=== PATIENT | female | born 1965 | race Caucasian/White ===

== ENCOUNTER → 2017-01-22 | Outpatient (CLI) | payer OTHER ==
--- NOTE | 2017-01-22 16:45 | XR ---
EXAMINATION TYPE: XR ankle complete LT , 3 VIEWS DATE OF EXAM ORDERED: 01/22/2017 HISTORY: [id number] lt ankle pain. COMPARISON: None. FINDINGS: There is a mildly displaced fracture of the distal metaphysis of the left fibula. No defin ite joint effusion is seen. No other fractures are identified. IMPRESSION: MILDLY DISPLACED FRACTURE OF THE DISTAL LEFT FIBULAR METAPHYSIS.
== END ==
LOC: RADXRYALE 14:45
PROVIDERS: ATTEND Family Medicine
DX: S82.832A Other fracture of upper and lower end of left fibula, initial encounter for closed fracture (principal)

== ENCOUNTER → 2017-02-03 | Outpatient (CLI) | payer OTHER ==
--- NOTE | 2017-02-03 21:11 | MR ---
EXAMINATION TYPE: Lumbar spine and cervical spine MRI DATE OF EXAM: 02/03/2017 COMPARISON: Spine 01/08/2015 HISTORY: Chronic pain, Headaches, Dorsalgia TECHNIQUE: Multiplanar, multisequence imaging of the lumbar and cervical spine is performed without I V contrast. FINDINGS: Lumbar spine MRI: Sagittal images of the lumbar spine show vertebral body heights and alignment to ap pear satisfactory. The intervertebral discs demonstrate normal heights and hydration with the excepti on of some loss of disc height and signal at L4-5, some increased signal at the posterior aspect of t he disc may represent a small annular tear. There is mild multilevel spondylosis. The conus medullari s is normal in position and signal. The bone marrow signal intensity is within normal limits. Axial images show small posterior disc bulge L5-S1 and L4-5. There is no spinal canal stenosis, neura l foraminal narrowing, or evidence of nerve root compromise. IMPRESSION: Small annular tear, central posterior disc bulge at L4-5 and to lesser extent L5-S1. Cervical spine MRI: Cervical vertebral bodies show preserved height and alignment. Loss of disc heigh t and signal present at C3-4 and C4-5, minimal endplate discogenic marrow signal change, spondylosis is present. Cervical cord signal, cervical medullary junction are normal. C2-3: Small central posterior disc bulge is noted, no significant foraminal encroachment or central c anal stenosis. C3-4: Status post extension of endplate disc complex results in mild effacement of the anterior theca l sac. Mild foraminal encroachment due to lateral extension of endplate disc complex. There may be co ntact the anterior cervical cord. C4-5: Posterior extension of endplate disc complex causes only minimal anterior mass effect on the th ecal sac. C5-6: Lateral extension of endplate disc complex causes some foraminal encroachment right sided. No s ignificant central stenosis. There is a broad-based posterior disc bulge. C6-7: Within normal limits C7-T1: Unremarkable IMPRESSION: Multilevel degenerative disc disease, foraminal encroachment as described.
== END | disposition home or self-care (01) ==
LOC: RADMRIMAIN 19:46
PROVIDERS: ATTEND Family Medicine
DX: M51.27 Other intervertebral disc displacement, lumbosacral region (principal); M50.30 Other cervical disc degeneration, unspecified cervical region
CPT/HCPCS: 72141; 72148

== ENCOUNTER → 2017-07-08 | Outpatient (CLI) | payer OTHER ==
--- NOTE | 2017-07-08 17:14 | CT ---
EXAMINATION TYPE: CT ankle LT wo con DATE OF EXAM: 07/08/2017 COMPARISON: Radiograph 01/22/2017 HISTORY: 52-year-old female with left ankle pain TECHNIQUE: Contiguous axial scanning of the left ankle without IV contrast. Coronal and sagittal roxie nstructions performed. CT DLP: 210.70 mGycm Automated exposure control for dose reduction was used. FINDINGS: There is a minimally comminuted, mildly displaced oblique fracture of the distal fibula at and just a cele the level of the ankle joint line. Healing is incomplete and some of the fracture margins appear somewhat sclerotic.. Small type I accessory navicular. Ankle mortise otherwise appears congruent. Talar dome is intact. Vyas btalar joint is aligned. Small delineation to the Achilles tendon. No additional acute fracture, subl uxation, or dislocation is seen. IMPRESSION: 1. Minimally comminuted, mildly displaced oblique fracture of the distal fibula. Healing is incomplet e and some of the fracture margins appear sclerotic. Delayed union is not excluded. 2. No other acute or healing fracture seen.
== END | disposition home or self-care (01) ==
LOC: RADCTMAIN 12:50
PROVIDERS: ATTEND Orthopaedic Surgery
DX: S82.62XG Displaced fracture of lateral malleolus of left fibula, subsequent encounter for closed fracture with delayed healing (principal)

== ENCOUNTER → 2017-08-18 | Outpatient (CLI) | payer OTHER ==
[2017-08-18 12:50] LABS: ALT 30 U/L (9-52); AST 28 U/L (14-36); Albumin 4.7 g/dL (3.5-5.0); Alkaline Phosphatase 104 U/L (38-126); Anion Gap 15 mmol/L; Blood Urea Nitrogen 11 mg/dL (7-17); Calcium 10.2 mg/dL (8.4-10.2); Carbon Dioxide 21 mmol/L (22-30); Chloride 106 mmol/L (98-107); Glucose 93 mg/dL (74-99); Sodium 142 mmol/L (137-145); Total Bilirubin 0.4 mg/dL (0.2-1.3)
[2017-08-18 12:59] LABS: Prothrombin Time 10.2 sec (9.0-12.0)
[2017-08-18 13:08] LABS: Basophils % (A) 1 %; Eosinophils # (A) 0.3 k/uL (0-0.7); Eosinophils % (A) 5 %; HCT 41.6 % (34.0-46.0); HGB 13.8 gm/dL (11.4-16.0); Lymphocytes # (A) 1.9 k/uL (1.0-4.8); Lymphocytes % (A) 28 %; MCH 29.6 pg (25.0-35.0); MCHC 33.1 g/dL (31.0-37.0); MCV 89.4 fL (80.0-100.0); Mean Platelet Volume 6.9; Monocytes # (A) 0.4 k/uL (0-1.0); Monocytes % (A) 6 %; Neutrophils # (A) 3.9 k/uL (1.3-7.7); Neutrophils % (A) 59 %; Platelet Count 366 k/uL (150-450); RBC 4.66 m/uL (3.80-5.40); RDW 12.7 % (11.5-15.5); WBC 6.6 k/uL (3.8-10.6)
== END | disposition home or self-care (01) ==
LOC: LABPAT 12:12
PROVIDERS: ATTEND Family Medicine
DX: Z01.818 Encounter for other preprocedural examination (principal); E78.00 Pure hypercholesterolemia, unspecified
CPT/HCPCS: 36415; 80053; 85025; 85610; 93005

== ENCOUNTER 2017-08-28 11:46 | Day surgery (SDC) | payer OTHER ==
[2017-08-26 12:34] VITALS: BMI 20.5
[~2017-08-28 11:46] MED LIST: DEXAMETHASONE SOD PHOSPHATE 10 MG/ML 1 ML VIAL IV ONE; HYDROmorphone 0.5 MG/0.5 ML SYRINGE IVP PRN; LACTATED RINGERS 1,000 ML IV SCH; LIDOCAINE 1% 20 ML VIAL (10MG/ML) FOR IV START INTRADERMA PRN; MIDAZOLAM 2 MG/2 ML VIAL IV PRN; MORPHINE SULFATE 2 MG/ML SYRINGE IV PRN; ONDANSETRON 4 MG/2 ML VIAL IVP ONE; SCOPOLAMINE 1.5MG/72HR PATCH TRANSDERM ONE; ceFAZolin IN SWFI 2 GM/20 ML SYRINGE IVP ONE
[2017-08-28] MEDS ORDERED: fentaNYL (PF) 50 MCG/ML 2 ML AMP IV ONE ×2 (13:58)
[2017-08-28] MEDS ORDERED: PROPOFOL 10 MG/ML 20 ML VIAL IV ONE (15:22)
[2017-08-28] MEDS ORDERED: LIDOCAINE 1% INJ 10MG/ML (20 ML MDV) ONE (15:22)
[2017-08-28] MEDS ORDERED: fentaNYL (PF) 50 MCG/ML 2 ML AMP ONE (15:22)
[2017-08-28] MEDS ORDERED: SUCCINYLCHOLINE CHLORIDE 100 MG/5 ML SYR IV ONE (15:22)
[2017-08-28] MEDS ORDERED: diphenhydrAMINE 25 MG CAP PO PRN (16:41)
[2017-08-28] MEDS ORDERED: MORPHINE SULFATE 4MG/4ML SYRG IVP PRN ×2 (16:41)
[2017-08-28] MEDS ORDERED: HYDROcodone/APAP 5-325MG 1 EACH TAB PO PRN ×2 (16:41)
[2017-08-28] MEDS ORDERED: LACTATED RINGERS 1,000 ML IV ONE (16:52)
[2017-08-28 17:00] VITALS: TEMP 97.6
[2017-08-28] MEDS: MEPERIDINE 50 MG/ML SYRINGE IVP ONE ×2 (17:00→17:10)
--- NOTE | 2017-08-28 17:03 | P.OP ---
Date of Procedure: 08/28/17 Preoperative Diagnosis: 1. Left lateral malleolus nonunion 2. History of cigarette smoking Postoperative Diagnosis: Same Procedure(s) Performed: 1. Open reduction and internal fixation of left lateral malleolus nonunion 2. Left calcaneal bone graft harvest, deep 3. Application of short leg splint by physician Anesthesia: MINOO Surgeon: César Nair Sumac Tanner #1: Giancarlo Singleton Estimated Blood Loss (ml): 10 IV fluids (ml): 500 Pathology: none sent Condition: stable Disposition: PACU Indications for Procedure: The patient is a very pleasant 52-year-old female who sustained an isolated lateral malleolus fracture. The fracture was found to be nondisplaced and she was treated conservatively with a period of protected weightbearing in a boot. Unfortunately the patient went on to develop a nonunion. The patient has a medical history significant for cigarette smoking. The patient was able to quit smoking. She had her vitamin D checked and she had supplements ordered. She also started on a bone stimulator. She continued to have pain so a computed tomography scan was obtained that showed a nonunion. We discussed continued nonsurgical treatment versus surgery. Due to her ongoing pain the patient requested surgery. My recommendation was to perform an open reduction internal fixation and bone grafting. We discussed the potential risks and benefits of surgery including not limited to risk of anesthesia, risk of delayed wound healing, risk of superficial infection, risk of deep infection, risk of damage to local blood vessels or nerves, risk of fracture nonunion, risk of fracture malunion, risk of hardware failure, risk of posterior medical arthritis, risk of chronic pain, risk of chronic swelling, inability to regain preinjury level of function, DVT, PE, other medical complications, need for further surgery, and possibly loss of life or limb. The patient voiced her understanding of this. She also knowledge that she is at a much higher risk of having a complication due to her prior history of smoking. She provided her verbal and written consent to go forward with the above procedure. Description of Procedure: The patient was identified in Holding and the correct left leg was marked with my initials. I reviewed the consent form with the patient and her family. All their questions were answered. The patient was then brought back to the operating room by anesthesia. A general anesthetic and preoperative antibiotics were administered. The patient was positioned on the OR table. A tourniquet was applied to the proximal aspect of the left thigh. A ramp was placed under the left buttock. All bony prominences were well-padded. The left leg was then prepped and draped in standard sterile fashion. Prior to starting surgery timeout was performed identifying the correct patient, operative extremity, and procedure. The patient's leg was then elevated, exsanguinated with an Esmarch bandage, and the tourniquet was inflated to 250 mmHg. An incision was marked out directly over the lateral aspect of the distal fibula. Skin incision was made a 15 blade scalpel. Dissection was carried down carefully through subcutaneous tissue with tenotomy scissors. The distal fibula was exposed. The fracture site was identified. There is a fibrous nonunion. Using a series of osteotomes and curettes the fracture site was debrided down to healthy bone. Once the fracture site had been exposed calcaneal bone graft was harvested. A small stab incision was made over the posterior inferior aspect of the posterior tuberosity. Skin incision was made at the site 15 blade. Dissection was carried down carefully with a hemostat. Using a 4.5 mm drill guide a core of bone was taken. This bone was then placed at the nonunion site. The fracture site was then clamped with a [id number] reduction clamp. The distal fragment was very soft. Once the fibular fracture was anatomically reduced fluoroscopy was used to verify that the fibula was out to length. Due to the patient's very thin soft tissue envelope over the lateral malleolus and her history of smoking I elected to place her hardware in a posterior anti-glide position. A 6-hole one third tubular plate was contoured and placed along the posterior border of the fibula. A 3.5 mm screws placed in the third hole of the plate just proximal to the fracture. A second 3.5 mm screw was placed in the first hole of the plate. The plate was nicely brought down to bone by the screws. I then placed a 3.5 mm locking screw in the most distal hole of the plate. A 2.7 mm lag screw was placed in the fifth hole of the plate. A 2.7 mm drill bit was used to create a gliding hole in the posterior cortex of the distal fragment and a 2.0 mm drill bit was used to create a threaded hole in the anterior cortex the proximal fragment. A fully threaded 2.7 mm screw was placed generating excellent compression across the fracture site. Final fluoroscopic images were taken. The wound was copiously irrigated. The periosteal layer was closed with a running 2-0 Vicryl. The deep subcu was reapproximated using 3-0 Monocryl. The skin was closed with 3-0 nylon horizontal mattress stitches. The stab incision over the calcaneus was closed with a 3-0 nylon horizontal mattress stitch. I verified that all instrument, sponge, and sharp counts were correct. The tourniquet was let down with a total tourniquet time of 48 minutes. A sterile dressing consisting of Betadine soaked Adaptic, 4 x 4, and web roll was applied. The drapes were taken off in a well-padded bulky Escobar splint was placed with the ankle in neutral. The patient was then awoken from her anesthetic, transferred to a gurney, and brought to PACU without the procedure well. Giancarlo Singleton PA-C was required a skilled digital assistant for patient positioning, exposure, reduction of fracture, harvested bone graft, placement of hardware, closure of wound, and application of splint. Plan: The patient is going to discharge home as an outpatient. She is to remain strictly nonweightbearing on her operative leg. She is to keep her splint clean and dry. She is going to continue taking calcium and vitamin D supplementation. She'll take aspirin 325 mg twice a day for DVT prophylaxis. She'll follow-up in 2 weeks for splint removal, x-rays, and placement of a cast.
--- NOTE | 2017-08-28 17:06 | FL ---
EXAMINATION TYPE: FL guidance operating room, XR ankle limited LT DATE OF EXAM: 08/28/2017 COMPARISON: NONE HISTORY: 52 year-old female left ankle ORIF FINDINGS: 2 intraoperative views showing lateral plate and screw fixation of the distal fibula. FLUOROSCOPY Fluoroscopy time of 17 seconds was used during left ankle ORIF. 2 image/s document/s the procedure. IMPRESSION: Intraoperative fluoroscopy during lateral malleolar ankle fixation.
[2017-08-28 17:40] VITALS: RESP 18
[2017-08-28 18:16] VITALS: BP 127/66; PULSE 80
== END 2017-08-28 18:35 | disposition home or self-care (01) ==
LOC: OR 11:46
PROVIDERS: ATTEND Orthopaedic Surgery
DX: S82.62XK Displaced fracture of lateral malleolus of left fibula, subsequent encounter for closed fracture with nonunion (principal); W18.30XD Fall on same level, unspecified, subsequent encounter; E78.5 Hyperlipidemia, unspecified; E03.9 Hypothyroidism, unspecified; I10 Essential (primary) hypertension; F98.8 Other specified behavioral and emotional disorders with onset usually occurring in childhood and adolescence; M81.0 Age-related osteoporosis without current pathological fracture; Z96.89 Presence of other specified functional implants; J44.9 Chronic obstructive pulmonary disease, unspecified; Z87.891 Personal history of nicotine dependence; Z79.891 Long term (current) use of opiate analgesic; Z79.51 Long term (current) use of inhaled steroids; Z79.1 Long term (current) use of non-steroidal anti-inflammatories (NSAID); Z79.899 Other long term (current) drug therapy; Z88.6 Allergy status to analgesic agent; Z88.0 Allergy status to penicillin
CPT/HCPCS: 73600; 27726; 20900; C1713; J2250; J1100; J2175; J2405; J2001; J3010; J0330; J2704; J0690

== ENCOUNTER 2024-08-30 20:14 | Inpatient (IN) | payer OTHER ==
[2024-08-30 21:05] LABS: Basophils # (A) 0.08 10*3/uL (0.00-0.10); Basophils % (A) 0.5 %; Eosinophils # (A) 0.02 10*3/uL (0.04-0.35); Eosinophils % (A) 0.1 %; HCT 36.7 % (37.2-46.3); HGB 12.3 g/dL (12.0-15.0); Lymphocytes # (A) 0.62 10*3/uL (0.90-5.00); Lymphocytes % (A) 3.6 %; MCHC 33.5 g/dL (32.0-37.0); MCV 86.6 fL (80.0-97.0); Mean Platelet Volume 9.4 fL (9.5-12.2); Monocytes # (A) 1.73 10*3/uL (0.20-1.00); Monocytes % (A) 9.9 %; Neutrophils # (A) 14.85 10*3/uL (1.80-7.70); Neutrophils % (A) 85.2 %; Platelet Count 365 10*3/uL (140-440); RBC 4.24 10*6/uL (4.10-5.20); WBC 17.43 10*3/uL (4.50-10.00)
[2024-08-30] MEDS: IBUPROFEN 600 MG TAB PO STA (21:05)
[2024-08-30] MEDS: ACETAMINOPHEN TAB 325 MG TAB PO STA (21:05)
[2024-08-30] MEDS: HYDROmorphone 0.5 MG/0.5 ML SYRINGE IVP STA (21:07)
--- NOTE | 2024-08-30 21:11 | ED ---
General Adult HPI - General Chief complaint: Shortness of Breath Stated complaint: Fall-SOB Time Seen by Provider: 08/30/24 20:34 Source: patient, RN notes reviewed Mode of arrival: ambulatory Limitations: no limitations - History of Present Illness Initial comments: 59-year-old female presents emergency department chief complaint of shortness of breath. Patient states she does have COPD she is she also had a fall and fell onto her ribs. She complains of severe rib pain. Patient denies any abdominal pain denies any head injury no loss conscious. Patient states her cough is productive with yellow sputum. Denies any sick contacts. - Related Data Home Medications Medication Instructions Recorded Confirmed Albuterol Inhaler [Ventolin Hfa 2 puff INHALATION RT-Q6H PRN 12/17/15 08/28/17 Inhaler] Atorvastatin [Lipitor] 20 mg PO DAILY 12/17/15 08/28/17 Beclomethasone Dipropionate [Qvar 1 puff INHALATION RT-BID 12/17/15 08/28/17 80 mcg/puff] Dextroamphetamine/Amphetamine 30 mg PO BID 12/17/15 08/28/17 [Adderall] Diazepam 10 mg PO BID PRN 12/17/15 08/28/17 Ibuprofen [Motrin] 800 mg PO Q8H PRN 12/17/15 08/28/17 Levothyroxine Sodium [Synthroid] 100 mcg PO QAM 12/17/15 08/28/17 Zolpidem Tartrate [Ambien] 10 mg PO HS PRN 08/26/17 08/28/17 Previous Rx's Medication Instructions Recorded HYDROcodone/APAP 5-325MG [[place] 5] 1 each PO Q4HR PRN #20 tab 12/17/15 Aspirin 325 mg PO BID #28 tab 08/28/17 Calcium Carbonate 500 mg PO TID #90 tablet 08/28/17 Cholecalciferol (Vitamin D3) 2,000 unit PO DAILY #60 capsule 08/28/17 [Vitamin D3] HYDROcodone/APAP 10-325MG [[place] 1 tab PO Q4HR PRN #50 tab 08/28/17 10-325] Allergies Allergy/AdvReac Type Severity Reaction Status Date / Time Penicillins Allergy Unknown Verified 08/26/17 12:20 Childhood Review of Systems ROS Statement: Those systems with pertinent positive or pertinent negative responses have been documented in the HPI. ROS Other: All systems not noted in ROS Statement are negative. Past Medical History Past Medical History: COPD, Hyperlipidemia, Thyroid Disorder Additional Past Medical History / Comment(s): fx lt ankle due to fall. History of Any Multi-Drug Resistant Organisms: None Reported Additional Past Surgical History / Comment(s): d & c Past Anesthesia/Blood Transfusion Reactions: No Reported Reaction Additional Past Anesthesia/Blood Transfusion Reaction / Comment(s): no hx blood transfusion Past Psychological History: Anxiety Smoking Status: Current every day smoker Past Alcohol Use History: Rare Past Drug Use History: None Reported - Past Family History Mother Family Medical History: No Reported History Father Family Medical History: Deep Vein Thrombosis (DVT) Additional Family Medical History / Comment(s): paralysis after hernia operation General Exam Limitations: no limitations General appearance: alert, in no apparent distress Head exam: Present: atraumatic, normocephalic, normal inspection Eye exam: Present: normal appearance, PERRL, EOMI. Absent: scleral icterus, conjunctival injection, periorbital swelling ENT exam: Present: normal exam, normal oropharynx, mucous membranes moist, TM's normal bilaterally Neck exam: Present: normal inspection. Absent: tenderness, meningismus, lymphadenopathy Respiratory exam: Present: respiratory distress, wheezes, rhonchi, chest wall tenderness. Absent: normal lung sounds bilaterally, rales, stridor Cardiovascular Exam: Present: normal rhythm, tachycardia, normal heart sounds. Absent: systolic murmur, diastolic murmur, rubs, gallop, clicks GI/Abdominal exam: Present: soft, normal bowel sounds. Absent: distended, tenderness, guarding, rebound, rigid Course Vital Signs 08/30/24 08/30/24 08/30/24 20:30 21:09 21:28 Temperature 102.6 F H 100.6 F H Pulse Rate 141 H 137 H Respiratory 20 24 Rate Blood Pressure 101/44 102/72 O2 Sat by Pulse 72 L 94 L Oximetry 08/30/24 08/30/24 21:46 21:59 Temperature Pulse Rate 125 H 122 H Respiratory Rate Blood Pressure O2 Sat by Pulse Oximetry EKG Findings - EKG Comments: EKG Findings:: EKG performed at 20: 46 sinus tachycardia rate of 138 [place] 140 QRS 97 QT/QTc 297/377 - EKG Results: EKG: interpreted by [facility] Medical Decision Making - Medical Decision Making Was pt. sent in by a medical professional or institution (, PA, BORE MILL OPERATOR, urgent care, hospital, or shelter...) When possible be specific @ -No Did you speak to anyone other than the patient for history (EMS, parent, family, police, friend...)? What history was obtained from this source @ -No Did you review nursing and triage notes (agree or disagree)? Why? @ -I reviewed and agree with nursing and triage notes Were old charts reviewed (outside hosp., previous admission, EMS record, old EKG, old radiological studies, urgent care reports/EKG's, shelter records)? Report findings @ -No old charts were reviewed Differential Diagnosis (chest pain, altered mental status, abdominal pain women, abdominal pain men, vaginal bleeding, weakness, fever, dyspnea, syncope, headache, dizziness, GI bleed, back pain, seizure, CVA, palpatations, mental health, musculoskeletal)? @ -[Differential Dyspnea: Coronary syndrome, arrhythmia, tamponade, asthma, COPD, pulmonary embolism, pneumonia, pneumothorax, pulmonary effusion, anaphylaxis, diabetic ketoacidosis, flailed chest, pulmonary contusion, diaphragmatic rupture, anemia, neuromuscular, this is not meant to be an all-inclusive list. EKG interpreted by me (3pts min.). @ -As above X-rays interpreted by me (1pt min.). @ -Chest x-ray shows evidence of pneumonia no obvious fracture CT interpreted by me (1pt min.). @ -None done U/S interpreted by me (1pt. min.). @ -None done What testing was considered but not performed or refused? (CT, X-rays, U/S, labs)? Why? @ -None What meds were considered but not given or refused? Why? @ -None Did you discuss the management of the patient with other professionals (professionals i.e. , RYAN, BORE MILL OPERATOR, lab, RT, psych nurse, sr. social media & mobile manager, return clerk, teacher, child support officer, case management director)? Give summary @ - Precaution for admission Was smoking cessation discussed for >3mins.? @ -No Was critical care preformed (if so, how long)? @ -35 minutes Were there social determinants of health that impacted care today? How? (Homelessness, low income, unemployed, alcoholism, drug addiction, transportation, low edu. Level, literacy, decrease access to med. care, [place] [facility], rehab)? @ -No Was there de-escalation of care discussed even if they declined (Discuss DNR or withdrawal of care, Hospice)? DNR status @ -No What co-morbidities impacted this encounter? (DM, HTN, Smoking, COPD, CAD, Cancer, CVA, ARF, Chemo, Hep., AIDS, mental health diagnosis, sleep apnea, morbid obesity)? @ -COPD Was patient admitted / discharged? Hospital course, mention meds given and route, prescriptions, significant lab abnormalities, going to OR and other pertinent info. @ -Admitted patient presented in acute hypoxic respiratory failure patient was placed supplemental oxygen, breathing treatments. Patient will be admitted for IV antibiotics steroids breathing treatments for COPD exacerbation and pneumonia. Undiagnosed new problem with uncertain prognosis? @ -No Drug Therapy requiring intensive monitoring for toxicity (Heparin, Nitro, Insulin, Cardizem)? @ -No Were any procedures done? @ -No Diagnosis/symptom? @ -COPD exacerbation, pneumonia, acute hypoxic respiratory failure Acute, or Chronic, or Acute on Chronic? @ -Acute Uncomplicated (without systemic symptoms) or Complicated (systemic symptoms)? @ -Complicated Side effects of treatment? @ -No Exacerbation, Progression, or Severe Exacerbation? @ -No Poses a threat to life or bodily function? How? (Chest pain, [place], [place], pneumonia, PE, COPD, DKA, ARF, appy, cholecystitis, CVA, Diverticulitis, Homicidal, Suicidal, threat to staff... and all critical care pts) @ -Yes threat to pulmonary function - Lab Data Result diagrams: 08/30/24 20:51 08/30/24 20:51 Lab Results 08/30/24 08/30/24 08/30/24 Range/Units 20:51 20:51 20:51 WBC 17.43 H (4.50-10.00) 10*3/uL RBC 4.24 (4.10-5.20) 10*6/uL Hgb 12.3 (12.0-15.0) g/dL Hct 36.7 L (37.2-46.3) % MCV 86.6 (80.0-97.0) fL MCH 29.0 (27.0-32.0) pg MCHC 33.5 (32.0-37.0) g/dL Plt Count 365 (140-440) 10*3/uL MPV 9.4 L (9.5-12.2) fL Immature Gran % (Auto) 0.7 % Neutrophils % 85.2 % Lymphocytes % 3.6 % Monocytes % 9.9 % Eosinophils % 0.1 % Basophils % 0.5 % Immature Gran # 0.13 H (0.00-0.04) 10*3/uL Neutrophils # 14.85 H (1.80-7.70) 10*3/uL Lymphocytes # 0.62 L (0.90-5.00) 10*3/uL Monocytes # 1.73 H (0.20-1.00) 10*3/uL Eosinophils # 0.02 L (0.04-0.35) 10*3/uL Basophils # 0.08 (0.00-0.10) 10*3/uL Manual Slide Review Performed PT 11.3 (10.0-12.5) sec INR 1.0 (<1.2) APTT 24.2 (22.0-30.0) sec Sodium 134 L (137-145) mmol/L Potassium 3.3 L (3.5-5.1) mmol/L Chloride 99 (98-107) mmol/L Carbon Dioxide 23 (22-30) mmol/L Anion Gap 12 mmol/L BUN 18 H (7-17) mg/dL Creatinine 0.73 (0.52-1.04) mg/dL Est GFR (CKD-EPI)AfAm >90 (>60 ml/min/1.73 sqM) Est GFR (CKD-EPI)NonAf >90 (>60 ml/min/1.73 sqM) Glucose 126 H (74-99) mg/dL Plasma Lactic Acid Adis (0.7-2.0) mmol/L Calcium 9.3 (8.4-10.2) mg/dL Magnesium 1.8 (1.6-2.3) mg/dL Total Bilirubin 2.1 H (0.2-1.3) mg/dL AST 220 H (14-36) U/L ALT 153 H (4-34) U/L Alkaline Phosphatase 427 H (38-126) U/L Troponin I (0.000-0.034) ng/mL NT-Pro-B Natriuret Pep 520 pg/mL Total Protein 6.9 (6.3-8.2) g/dL Albumin 3.9 (3.5-5.0) g/dL Influenza Type A (PCR) (Not Detectd) Influenza Type B (PCR) (Not Detectd) RSV (PCR) (Not Detectd) SARS-CoV-2 (PCR) (Not Detectd) 08/30/24 08/30/24 08/30/24 Range/Units 20:51 20:51 20:51 WBC (4.50-10.00) 10*3/uL RBC (4.10-5.20) 10*6/uL Hgb (12.0-15.0) g/dL Hct (37.2-46.3) % MCV (80.0-97.0) fL MCH (27.0-32.0) pg MCHC (32.0-37.0) g/dL Plt Count (140-440) 10*3/uL MPV (9.5-12.2) fL Immature Gran % (Auto) % Neutrophils % % Lymphocytes % % Monocytes % % Eosinophils % % Basophils % % Immature Gran # (0.00-0.04) 10*3/uL Neutrophils # (1.80-7.70) 10*3/uL Lymphocytes # (0.90-5.00) 10*3/uL Monocytes # (0.20-1.00) 10*3/uL Eosinophils # (0.04-0.35) 10*3/uL Basophils # (0.00-0.10) 10*3/uL Manual Slide Review PT (10.0-12.5) sec INR (<1.2) APTT (22.0-30.0) sec Sodium (137-145) mmol/L Potassium (3.5-5.1) mmol/L Chloride (98-107) mmol/L Carbon Dioxide (22-30) mmol/L Anion Gap mmol/L BUN (7-17) mg/dL Creatinine (0.52-1.04) mg/dL Est GFR (CKD-EPI)AfAm (>60 ml/min/1.73 sqM) Est GFR (CKD-EPI)NonAf (>60 ml/min/1.73 sqM) Glucose (74-99) mg/dL Plasma Lactic Acid Adis 1.4 (0.7-2.0) mmol/L Calcium (8.4-10.2) mg/dL Magnesium (1.6-2.3) mg/dL Total Bilirubin (0.2-1.3) mg/dL AST (14-36) U/L ALT (4-34) U/L Alkaline Phosphatase (38-126) U/L Troponin I <0.012 (0.000-0.034) ng/mL NT-Pro-B Natriuret Pep pg/mL Total Protein (6.3-8.2) g/dL Albumin (3.5-5.0) g/dL Influenza Type A (PCR) Not Detected (Not Detectd) Influenza Type B (PCR) Not Detected (Not Detectd) RSV (PCR) Not Detected (Not Detectd) SARS-CoV-2 (PCR) Not Detected (Not Detectd) Disposition Clinical Impression: COPD exacerbation, Pneumonia, Acute hypoxic respiratory failure Disposition: ADMITTED IP TO THIS HOSP Condition: Poor Referrals: Cain Sung MD [Primary Care Provider] - 1-2 days Time of Disposition: 22:29
--- NOTE | 2024-08-30 21:13 | XR ---
EXAMINATION TYPE: XR chest 2V DATE OF EXAM: 08/30/2024 9:03 PM COMPARISON: None TECHNIQUE: XR chest 2V Frontal and lateral views of the chest. CLINICAL INDICATION:Female, 59 years old with history of difficulty breathing; FINDINGS: Lungs/Pleura: Hyperinflation. No pleural effusion. Right basilar patchy airspace opacities. Appears t o be primarily within the right middle lobe. No pneumothorax. Pulmonary vascularity: Unremarkable. Heart/mediastinum: Cardiomediastinal silhouette is unremarkable. Atherosclerotic calcifications are seen in the aorta. Musculoskeletal: No acute osseous pathology. IMPRESSION: Right basilar pneumonia superimposed upon background COPD. [facility], , 08/30/2024 9:11 PM
[2024-08-30 21:15] LABS: Partial Thromboplastin Time 24.2 sec (22.0-30.0); Prothrombin Time 11.3 sec (10.0-12.5)
[2024-08-30 21:18] LABS: ALT 153 U/L (4-34); AST 220 U/L (14-36); African American GFR (CKD) >90 (>60 ml/min/1.73 sqM); Albumin 3.9 g/dL (3.5-5.0); Alkaline Phosphatase 427 U/L (38-126); Anion Gap 12 mmol/L; Blood Urea Nitrogen 18 mg/dL (7-17); Calcium 9.3 mg/dL (8.4-10.2); Carbon Dioxide 23 mmol/L (22-30); Chloride 99 mmol/L (98-107); Glucose 126 mg/dL (74-99); Magnesium 1.8 mg/dL (1.6-2.3); Non-African American GFR(CKD) >90 (>60 ml/min/1.73 sqM); Potassium 3.3 mmol/L (3.5-5.1); Sodium 134 mmol/L (137-145); Total Bilirubin 2.1 mg/dL (0.2-1.3); Total Protein 6.9 g/dL (6.3-8.2)
[2024-08-30 21:26] LABS: NT-Pro-B-Type Natriuretic Pept 520 pg/mL
[2024-08-30 21:42] LABS: Influenza A Not Detected (Not Detectd); Influenza B Not Detected (Not Detectd); RSV Not Detected (Not Detectd)
[2024-08-30] MEDS: IPRATROPIUM-ALBUTEROL 3 ML NEB INHALATION STA (21:46)
[2024-08-30] MEDS ORDERED: IPRATROPIUM-ALBUTEROL 3 ML NEB INHALATION PRN (22:31)
[2024-08-30] MEDS ORDERED: NALOXONE 0.4 MG/ML 1 ML VIAL IVP PRN (22:31)
[2024-08-30] MEDS ORDERED: ACETAMINOPHEN TAB 325 MG TAB PO PRN (22:31)
[2024-08-30] MEDS: methylPREDNISolone SOD SUCCI 125 MG/2 ML VIAL IV STA (23:18)
[2024-08-30] MEDS: methylPREDNISolone SOD SUCCI 125 MG/2 ML VIAL IV SCH (23:21)
[2024-08-31] MEDS: HYDROcodone/APAP 5-325MG 1 EACH TAB PO PRN (00:09)
[2024-08-31] MEDS: SODIUM CHLORIDE 0.9% 1,000 ML IV ONE (00:09)
[2024-08-31] MEDS: IPRATROPIUM-ALBUTEROL 3 ML NEB INHALATION SCH (07:48)
[2024-08-31] MEDS: IBUPROFEN 800 MG TAB PO SCH (10:41)
[2024-08-31] MEDS: ATORVASTATIN 40 MG TAB PO SCH (10:41)
[2024-08-31] MEDS: MONTELUKAST 10 MG TAB PO SCH (10:41)
[2024-08-31] MEDS: LEVOTHYROXINE 112 MCG TAB PO SCH (10:41)
[2024-08-31] MEDS: GABAPENTIN 300 MG CAP PO SCH (10:41)
[2024-08-31] MEDS: ENOXAPARIN 40 MG/0.4 ML SYRINGE SQ SCH (10:43)
[2024-08-31] MEDS: ESCITALOPRAM 10 MG TAB PO SCH (10:52)
[2024-08-31] MEDS: methylPREDNISolone SOD SUCCI 40 MG/ML 1 ML VIAL IV SCH (12:46)
[2024-08-31] MEDS: cefTRIAXone 2 GM in DEXTROSE 5% IN WATER 50 ML IVPB SCH (12:47)
--- NOTE | 2024-08-31 15:18 | P.HPIM ---
History of Present Illness H&P Date: 08/31/24 Chief Complaint: Short of breath Pleasant 59-year-old, female patient, follows with Dr. Sung. Chronic stable medical condition include hypothyroid, osteoarthritis, hyperlipidemia, depression anxiety, urine incontinence. Patient presents with increased shortness of breath. Cough with yellow thick chunky sputum. Chills. Decreased appetite for 2 to 3 days. Wheezing. Patient smoking less than a pack a day. Fever and chills Review of systems: GEN.: Tired, chills, EYES: None HEENT: None NECK: None RESPIRATORY: [As above CARDIOVASCULAR: None GASTROINTESTINAL: None GENITOURINARY: None MUSCULOSKELETAL: None LYMPHATICS: None HEMATOLOGICAL: None PSYCHIATRY: None NEUROLOGICAL: None Social history: Lives with her boyfriend Enzo. Currently less than a pack a day with smoking for quite close to 48 years. No alcohol. Physical examination: VITAL SIGNS: 102.6, 141, 20, 101/44, 72% room air upon presentation GENERAL: BMI 21.5, thin built, sitting up tired. EYES: Pupils equal. Conjunctiva lars l. HEENT: [External appearance of nose and ears normal, oral cavity missing teeth NECK: JVD not raised; masses not palpable. HEART: First and second heart sounds are normal; no edema. LUNGS: Respiratory rate increased, diminished breath sounds wheezing basal crackles. ABDOMEN: Soft, nontender, liver spleen not palpable, no masses palpable. PSYCH: [Alert and oriented x3; mood and affect bit anxious. MUSCULOSKELETAL:No Clubbing/cyanosis;muscles-grossly intact. Loss of muscle mass subcutaneous fat. Prominent bones. NEUROLOGICAL: Cranial nerves grossly intact; no facial asymmetry, power and sensation grossly intact. LYMPHATICS: No lymph nodes palpable in the axilla and neck INVESTIGATIONS, reviewed in the clinical context: August 30, 2024: White count 7.4 hemoglobin 12.3 platelets 365 sodium 134 potassium 3.3.18 creatinine 0.73 total bilirubin 2.1 AST 220 ALT 153 alkaline phosphatase 437 Troponin less than 0.012 proBNP 520 Influenza type A, type B, RSV, SARS-CoV-2: Not detected EKG tracing personally reviewed by me-sinus tachycardia. ST-T wave changes. Chest x-ray film personally reviewed by me-right basilar infiltrate. Assessment plan: - Right basal pneumonia suspect gram-negative organism causing sepsis IV ceftriaxone 2 g. Sputum for Gram stain culture. Blood culture - Acute COPD exacerbation in a current smoker DuoNeb. IV Solu-Medrol. - Chronic nicotine dependence cigarette smoker Nicotine patch 21 - Hepatitis. Unknown acute versus chronic. Acute hepatitis panel. Liver ultrasound Hold Lipitor - Hypothyroid Synthroid 112 mcg a day. Check LFTs - Chronic depression with anxiety. Lexapro. Diazepam. - Osteoporosis, chronic Fosamax - Hyperlipidemia Lipitor - Edentulous Soft diet - Full code Discussed with patient. Given the complexity and severity of patient's condition expect the patient to be in the hospital at least for 2 overnights Past Medical History Past Medical History: COPD, Hyperlipidemia, Thyroid Disorder Additional Past Medical History / Comment(s): fx lt ankle due to fall. History of Any Multi-Drug Resistant Organisms: None Reported Additional Past Surgical History / Comment(s): d & c. Past Anesthesia/Blood Transfusion Reactions: No Reported Reaction Additional Past Anesthesia/Blood Transfusion Reaction / Comment(s): no hx blood transfusion. Past Psychological History: Anxiety Smoking Status: Current every day smoker Past Alcohol Use History: Rare Additional Past Alcohol Use History / Comment(s): started smoking approx at age 16,1ppd. Past Drug Use History: None Reported - Past Family History Mother Family Medical History: No Reported History Father Family Medical History: Deep Vein Thrombosis (DVT) Additional Family Medical History / Comment(s): paralysis after hernia operation. Medications and Allergies Home Medications Medication Instructions Recorded Confirmed Type Albuterol Inhaler [Ventolin Hfa 2 puff INHALATION RT-Q6H PRN 12/17/15 08/31/24 History Inhaler] Diazepam 10 mg PO BID 12/17/15 08/31/24 History Ibuprofen [Motrin] 800 mg PO TID 12/17/15 08/31/24 History Alendronate Sodium [Fosamax] 70 mg PO FR 08/31/24 08/31/24 History Atorvastatin Calcium [Lipitor] 40 mg PO DAILY 08/31/24 08/31/24 History Escitalopram [Lexapro] 10 mg PO DAILY 08/31/24 08/31/24 History Fluticasone Propion/Salmeterol 1 puff INHALATION RT-BID 08/31/24 08/31/24 History [Advair 250-50 Diskus] Gabapentin 600 mg PO DAILY 08/31/24 08/31/24 History Levothyroxine Sodium [Synthroid] 112 mcg PO DAILY 08/31/24 08/31/24 History Montelukast [Singulair] 10 mg PO DAILY 08/31/24 08/31/24 History Allergies Allergy/AdvReac Type Severity Reaction Status Date / Time Penicillins Allergy Unknown Verified 08/31/24 08:48 Childhood Physical Exam Vitals: Vital Signs Temp Pulse Pulse Resp BP BP Pulse Ox 08/31/24 07:50 80 16 08/31/24 07:06 97.9 F 80 16 101/59 100 08/31/24 05:03 97.6 F 91 17 108/63 97 08/31/24 03:51 98.1 F 83 20 96/58 95 08/31/24 02:23 94 L 08/31/24 02:20 79 L 08/31/24 00:46 96 20 96 08/30/24 23:00 113 H 20 90/58 93 L 08/30/24 21:59 122 H 08/30/24 21:46 125 H 08/30/24 21:28 100.6 F H 08/30/24 21:09 137 H 24 102/72 94 L 08/30/24 20:30 102.6 F H 141 H 20 101/44 72 L Intake and Output 08/30/24 08/31/24 08/31/24 22:59 06:59 14:59 Other: Voiding Method Toilet Toilet Weight 56.699 kg 56.699 kg Results CBC & Chem 7: 08/30/24 20:51 08/30/24 20:51 Labs: Abnormal Lab Results - Last 24 Hours (Table) 08/30/24 08/30/24 Range/Units 20:51 20:51 WBC 17.43 H (4.50-10.00) 10*3/uL Hct 36.7 L (37.2-46.3) % MPV 9.4 L (9.5-12.2) fL Immature Gran # 0.13 H (0.00-0.04) 10*3/uL Neutrophils # 14.85 H (1.80-7.70) 10*3/uL Lymphocytes # 0.62 L (0.90-5.00) 10*3/uL Monocytes # 1.73 H (0.20-1.00) 10*3/uL Eosinophils # 0.02 L (0.04-0.35) 10*3/uL Sodium 134 L (137-145) mmol/L Potassium 3.3 L (3.5-5.1) mmol/L BUN 18 H (7-17) mg/dL Glucose 126 H (74-99) mg/dL Total Bilirubin 2.1 H (0.2-1.3) mg/dL AST 220 H (14-36) U/L ALT 153 H (4-34) U/L Alkaline Phosphatase 427 H (38-126) U/L Thrombosis Risk Factor Assmnt - Choose All That Apply Any of the Below Risk Factors Present?: Yes Each Factor Represents 1 point: Abnormal pulmonary function (COPD), Age 41-60 years Other Risk Factors: No Thrombosis Risk Factor Assessment Total Risk Factor Score: 2 Thrombosis Risk Factor Assessment Level: Low Risk
[2024-08-31] MEDS: NICOTINE 21MG/24HR PATCH TRANSDERM SCH (17:09)
[2024-08-31 18:34] LABS: Hepatitis A Antibody IgM Nonreactive (Nonreactive); Hepatitis B Core IgM Nonreactive (Nonreactive); Hepatitis B Surface Antigen Nonreactive (Nonreactive); Hepatitis C IgG Antibody Nonreactive (Nonreactive)
[2024-08-31] MEDS: diazePAM 5 MG TAB PO SCH (22:06)
[2024-09-01 05:35] LABS: ALT 200 U/L (4-34); AST 268 U/L (14-36); African American GFR (CKD) >90 (>60 ml/min/1.73 sqM); Albumin/Globulin Ratio 1.1; Alkaline Phosphatase 354 U/L (38-126); Anion Gap 4 mmol/L; Blood Urea Nitrogen 21 mg/dL (7-17); Carbon Dioxide 28 mmol/L (22-30); Chloride 106 mmol/L (98-107); Globulin 2.7 g/dL; Glucose 140 mg/dL (74-99); Non-African American GFR(CKD) >90 (>60 ml/min/1.73 sqM); Potassium 3.8 mmol/L (3.5-5.1); Sodium 138 mmol/L (137-145); Total Bilirubin 0.6 mg/dL (0.2-1.3); Total Protein 5.7 g/dL (6.3-8.2)
--- NOTE | 2024-09-01 08:09 | US ---
EXAMINATION TYPE: US abdomen limited DATE OF EXAM: 09/01/2024 COMPARISON: NONE CLINICAL INDICATION: Female, 59 years old with history of Elevated liver enzymes; abn labs, no sympto ms TECHNIQUE: Grayscale and color Doppler imaging of the right upper quadrant was performed. FINDINGS: EXAM MEASUREMENTS: Liver Length: 16.3 cm Gallbladder Wall: 0.4 cm CBD: 0.2 cm Right Kidney: 9.9 x 4.4 x 4.2 cm Pancreas: wnl Liver: wnl Gallbladder: wnl Evidence for sonographic Bravo's sign: no CBD: wnl Right Kidney: wnl IMPRESSION: No acute right upper quadrant ultrasound abnormality [facility], , 09/01/2024 8:07 AM
--- NOTE | 2024-09-01 19:46 | P.PN ---
Progress Note - Text Progress Note Date: 09/01/24 Chief Complaint: Short of breath Pleasant 59-year-old, female patient, follows with Dr. Sung. Chronic stable medical condition include hypothyroid, osteoarthritis, hyperlipidemia, depression anxiety, urine incontinence. Patient presents with increased shortn ess of breath. Cough with yellow thick chunky sputum. Chills. Decreased appetite for 2 to 3 days. Wheezing. Patient smoking less than a pack a day. Fever and chills September 01: Breathing better. A bit tired. Did ambulate around the room. IV ceftriaxone. IV Solu-Medrol. Discussed with patient. Hopefully discharge tomorrow. Patient's TSH is rather low. She clinically does not look to be over replaced. Will decrease Synthroid to 75. LFTs are up. Abdominal ultrasound unremarkable. Check acute hepatitis panel. Hold Lipitor. Active Medications Acetaminophen (Acetaminophen Tab 325 Mg Tab) 650 mg PO Q4HR PRN PRN Reason: Mild Pain or Fever > 100.5 Hydrocodone Bitart/Acetaminophen (Hydrocodone/Apap 5-325mg 1 Each Tab) 1 each PO Q6HR PRN PRN Reason: Moderate to Severe Pain (4-10) Last Admin: 09/01/24 12:56 Dose: 1 each Albuterol/Ipratropium (Ipratropium-Albuterol 3 Ml Neb) 3 ml INHALATION RT-QID [facility] Last Admin: 09/01/24 16:50 Dose: 3 ml Albuterol/Ipratropium (Ipratropium-Albuterol 3 Ml Neb) 3 ml INHALATION RT-Q2H PRN PRN Reason: Shortness Of Breath Or Wheezing Atorvastatin Calcium (Atorvastatin 40 Mg Tab) 40 mg PO DAILY [facility] Last Admin: 09/01/24 09:50 Dose: 40 mg Diazepam (Diazepam 5 Mg Tab) 10 mg PO BID [facility] Last Admin: 09/01/24 09:58 Dose: 10 mg Enoxaparin Sodium (Enoxaparin 40 Mg/0.4 Ml Syringe) 40 mg SQ DAILY [facility] Last Admin: 09/01/24 09:51 Dose: 40 mg Escitalopram Oxalate (Escitalopram 10 Mg Tab) 10 mg PO DAILY [facility] Last Admin: 09/01/24 09:51 Dose: 10 mg Gabapentin (Gabapentin 300 Mg Cap) 600 mg PO DAILY [facility] Last Admin: 09/01/24 09:51 Dose: 600 mg Ceftriaxone Sodium 2 gm/ (Dextrose/Water) 50 mls @ 100 mls/hr IVPB Q24HR [facility]; Protocol Last Admin: 09/01/24 09:51 Dose: 100 mls/hr Ibuprofen (Ibuprofen 800 Mg Tab) 800 mg PO TID [facility] Last Admin: 09/01/24 18:54 Dose: Not Given Levothyroxine Sodium (Levothyroxine 75 Mcg Tab) 75 mcg PO DAILY@0630 [facility] Methylprednisolone Sodium Succinate (Methylprednisolone Sod Succi 40 Mg/Ml 1 Ml Vial) 40 mg IV Q8H [facility] Last Admin: 09/01/24 12:49 Dose: 40 mg Montelukast Sodium (Montelukast 10 Mg Tab) 10 mg PO DAILY [facility] Last Admin: 09/01/24 09:51 Dose: 10 mg Naloxone HCl (Naloxone 0.4 Mg/Ml 1 Ml Vial) 0.2 mg IVP Q2M PRN PRN Reason: Opioid Reversal Nicotine (Nicotine 21mg/24hr Patch) 1 patch TRANSDERM DAILY [facility] Last Admin: 09/01/24 09:51 Dose: 1 patch Social history: Lives with her boyfriend Enzo. Currently less than a pack a day with smoking for quite close to 48 years. No alcohol. Physical examination: VITAL SIGNS: 98.6, 99, 17, 107 x 57, 94% 3 L GENERAL: BMI 21.5, thin built, breathing better EYES: Pupils equal. Conjunctiva lars l. HEENT: [External appearance of nose and ears normal, oral cavity missing teeth NECK: JVD not raised; masses not palpable. HEART: First and second heart sounds are normal; no edema. LUNGS: Respiratory rate increased, diminished breath sounds ABDOMEN: Soft, nontender, liver spleen not palpable, no masses palpable. PSYCH: [Alert and oriented x3; mood and affect bit anxious. MUSCULOSKELETAL:No Clubbing/cyanosis;muscles-grossly intact. Loss of muscle mass subcutaneous fat. Prominent bones. INVESTIGATIONS, reviewed in the clinical context: September 01: Sodium 138 potassium 3.8 AST 268 ALT 200 alk phos 354 TSH less than 0.015 Free T4-1.7 August 30, 2024: White count 7.4 hemoglobin 12.3 platelets 365 sodium 134 potassium 3.3.18 creatinine 0.73 total bilirubin 2.1 AST 220 ALT 153 alkaline phosphatase 437 Troponin less than 0.012 proBNP 520 Influenza type A, type B, RSV, SARS-CoV-2: Not detected EKG tracing personally reviewed by me-sinus tachycardia. ST-T wave changes. Chest x-ray film personally reviewed by me-right basilar infiltrate. Assessment plan: - Right basal pneumonia suspect gram-negative organism causing sepsis: Improving IV ceftriaxone 2 g. Sputum for Gram stain culture. Blood culture - Acute COPD exacerbation in a current smoker: Improving DuoNeb. IV Solu-Medrol. - Chronic nicotine dependence cigarette smoker Nicotine patch 21 - Hepatitis.: With worsening Acute hepatitis panel. Liver ultrasound: Unremarkable Hold Lipitor Consult GI - Hypothyroid Synthroid 112 mcg a day. Check LFTs - Chronic depression with anxiety. Lexapro. Diazepam. - Osteoporosis, chronic Fosamax - Hyperlipidemia Lipitor - Edentulous Soft diet - Full code Repeat LFTs. Stop Lipitor. Acute hepatitis panel. Consult GI Past Medical History Past Medical History: COPD, Hyperlipidemia, Thyroid Disorder Additional Past Medical History / Comment(s): fx lt ankle due to fall. History of Any Multi-Drug Resistant Organisms: None Reported Additional Past Surgical History / Comment(s): d & c. Past Anesthesia/Blood Transfusion Reactions: No Reported Reaction Additional Past Anesthesia/Blood Transfusion Reaction / Comment(s): no hx blood transfusion. Past Psychological History: Anxiety Smoking Status: Current every day smoker Past Alcohol Use History: Rare Additional Past Alcohol Use History / Comment(s): started smoking approx at age 16,1ppd. Past Drug Use History: None Reported
[2024-09-02 06:24] LABS: ALT 307 U/L (4-34); AST 344 U/L (14-36); African American GFR (CKD) >90 (>60 ml/min/1.73 sqM); Albumin 3.2 g/dL (3.5-5.0); Albumin/Globulin Ratio 1.1; Alkaline Phosphatase 352 U/L (38-126); Anion Gap 5 mmol/L; Blood Urea Nitrogen 17 mg/dL (7-17); Calcium 9.3 mg/dL (8.4-10.2); Carbon Dioxide 29 mmol/L (22-30); Chloride 107 mmol/L (98-107); Globulin 2.8 g/dL; Glucose 115 mg/dL (74-99); Non-African American GFR(CKD) >90 (>60 ml/min/1.73 sqM); Potassium 4.3 mmol/L (3.5-5.1); Sodium 141 mmol/L (137-145); Total Bilirubin 0.4 mg/dL (0.2-1.3)
[2024-09-02] MEDS ORDERED: NON FORMULARY DRUG (Alendronate Sodium [Fosamax] 70 MG Tablet) PO SCH (09:36)
[2024-09-02 11:03] LABS: Ceruloplasmin 32.5 mg/dL (20.0-60.0)
--- NOTE | 2024-09-02 11:23 | P.CONS ---
History of Present Illness - Reason for Consult Consult date: 09/02/24 Hepatitis Requesting physician: Erickson Garcia - Chief Complaint Shortness of breath - History of Present Illness This is a pleasant 59-year-old female who presented to the emergency department with complaints of increased shortness of breath. She has a past medical histo ry of COPD, smoker, hypothyroidism, osteoarthritis, hyperlipidemia urinary incontinence, anxiety and depression. She presented with shortness of breath, cough with thick sputum and decreased appetite. Patient was admitted to the hospital for acute COPD exacerbation, and pneumonia. She was noted to have elevated liver function studies. Abdominal ultrasound was ordered with no acute findings. Hepatitis panel was ordered as well which was nonreactive. Gastroenterology was consulted for hepatitis. Patient denies any history known liver disease or elevated liver enzymes in the past. She denies frequent alcohol use or past history of alcohol abuse. Denies any history of liver disease, she denies any abdominal pain no nausea or vomiting. Denies any new medications or recent antibiotics other than about 2 months ago she states she was in an antibiotic. She does take Lipitor and has been on that for the past few years with no increase in dose. Review of Systems REVIEW OF SYSTEMS: CARDIOPULMONARY: No chest pain. Positive shortness of breath, productive cough. Gastrointestinal: No abdominal pain. No nausea or vomiting. No hematemesis, coffee-ground emesis. No rectal bleeding, or melena. GENITOURINARY: No dysuria or hematuria. MUSCULOSKELETAL: Reports normal range of motion., Joint pain. SKIN: No rashes. No jaundice. ENDOCRINE: No chills, fevers. No excessive weight gain or loss. No polydipsia or polyuria. PSYCHIATRIC: Unremarkable. NEUROLOGY: No change in mental status. Denies dizziness, headache. ENT: Vision unremarkable. CONSTITUTIONAL: No recent weight loss. No fever, chills, night sweats. Past Medical History Past Medical History: COPD, Hyperlipidemia, Thyroid Disorder Additional Past Medical History / Comment(s): fx lt ankle due to fall. History of Any Multi-Drug Resistant Organisms: None Reported Additional Past Surgical History / Comment(s): d & c. Past Anesthesia/Blood Transfusion Reactions: No Reported Reaction Additional Past Anesthesia/Blood Transfusion Reaction / Comm: no hx blood transfusion. Past Psychological History: Anxiety Smoking Status: Current every day smoker Past Alcohol Use History: Rare Additional Past Alcohol Use History / Comment(s): started smoking approx at age 16,1ppd. Past Drug Use History: None Reported - Past Family History Mother Family Medical History: No Reported History Father Family Medical History: Deep Vein Thrombosis (DVT) Additional Family Medical History / Comment(s): paralysis after hernia operation. Medications and Allergies Home Medications Medication Instructions Recorded Confirmed Type Albuterol Inhaler [Ventolin Hfa 2 puff INHALATION RT-Q6H PRN 12/17/15 08/31/24 History Inhaler] Diazepam 10 mg PO BID 12/17/15 08/31/24 History Ibuprofen [Motrin] 800 mg PO TID 12/17/15 08/31/24 History Alendronate Sodium [Fosamax] 70 mg PO FR 08/31/24 08/31/24 History Atorvastatin Calcium [Lipitor] 40 mg PO DAILY 08/31/24 08/31/24 History Escitalopram [Lexapro] 10 mg PO DAILY 08/31/24 08/31/24 History Fluticasone Propion/Salmeterol 1 puff INHALATION RT-BID 08/31/24 08/31/24 History [Advair 250-50 Diskus] Gabapentin 600 mg PO DAILY 08/31/24 08/31/24 History Levothyroxine Sodium [Synthroid] 112 mcg PO DAILY 08/31/24 08/31/24 History Montelukast [Singulair] 10 mg PO DAILY 08/31/24 08/31/24 History Allergies Allergy/AdvReac Type Severity Reaction Status Date / Time Penicillins Allergy Unknown Verified 08/31/24 08:48 Childhood Physical Exam Vitals: Vital Signs Temp Pulse Pulse Resp BP Pulse Ox 09/02/24 01:42 98.6 F 105 H 17 121/57 98 09/01/24 21:26 90 18 09/01/24 21:19 91 18 09/01/24 19:47 97.9 F 118 H 16 108/61 95 09/01/24 17:02 17 09/01/24 17:01 99 09/01/24 16:50 100 09/01/24 16:23 98.6 F 99 17 107/57 94 L 09/01/24 14:00 18 09/01/24 12:51 110 H 09/01/24 12:42 107 H 09/01/24 12:23 98.1 F 100 18 117/68 98 04/10/25 09:16 111 H 09/01/24 09:06 114 H 90 L 09/01/24 07:45 92 18 09/01/24 07:31 98.1 F 92 18 118/68 93 L Intake and Output 09/01/24 09/01/24 09/02/24 14:59 22:59 06:59 Intake Total 335 Balance 335 Intake: IV 10 Invasive Line 2 10 Oral 325 Other: Voiding Method Toilet Toilet # Voids 1 3 2 # Bowel Movements 1 Weight 50 kg General appearance: The patient is alert, oriented, appears in no acute distress. HET: Head is normocephalic and atraumatic. Conjunctiva pink. Sclera anicteric. Neck: Supple without lymphadenopathy. Trachea midline. Heart: Regular. Lungs: Equal expansion, normal respiratory effort. Abdomen: Soft, nontender, no hepatomegaly, nondistended. Skin: No rashes. No jaundice. Extremities: Normal skin color and turgor. No pedal edema. Neurological: No focal deficits. Alert and oriented x3. Results CBC & Chem 7: 08/30/24 20:51 09/02/24 05:38 Labs: Abnormal Lab Results - Last 24 Hours (Table) 09/02/24 Range/Units 05:38 Creatinine 0.46 L (0.52-1.04) mg/dL Glucose 115 H (74-99) mg/dL AST 344 H (14-36) U/L ALT 307 H (4-34) U/L Alkaline Phosphatase 352 H (38-126) U/L Total Protein 6.0 L (6.3-8.2) g/dL Albumin 3.2 L (3.5-5.0) g/dL Microbiology - Last 24 Hours (Table) 09/01/24 12:49 Gram Stain - Preliminary Sputum 08/30/24 21:37 Blood Culture - Preliminary Blood Comments: Abdominal ultrasound reports no acute right upper quadrant ultrasound abnormality. Assessment and Plan (1) Transaminitis Narrative/Plan: 59-year-old female with multiple comorbidities admitted for acute exacerbation of COPD and pneumonia. Was noted on admission to have elevated bilirubin, AST ALT and alkaline phosphatase. No previous history of known liver disease, no known history of elevated LFTs and only 1 prior set of labs in our system to trend so unclear if this is acute versus something that is chronic. No alcohol abuse, is on Lipitor but he has been on that for a few years now with no inc rease in dose. Does admit to antibiotic use maybe about 2 months ago. Could be medication induced, will discontinue Lipitor for now. Avoid hepatotoxic medications. Ultrasound negative, hepatitis panel nonreactive. No reported abdominal pain, nausea or vomiting. Liver enzymes are trending down. Will order liver serologies and have patient follow-up with gastroenterology in 1 to 2 weeks. Current Visit: Yes Status: Acute Code(s): R74.01 - ELEVATION OF LEVELS OF LIVER TRANSAMINASE LEVELS SNOMED Code(s): 668496305 (2) COPD exacerbation Current Visit: Yes Status: Acute Code(s): J44.1 - CHRONIC OBSTRUCTIVE PULMONARY DISEASE W (ACUTE) EXACERBATION SNOMED Code(s): 058340721 (3) Pneumonia Current Visit: Yes Status: Acute Code(s): J18.9 - PNEUMONIA, UNSPECIFIED ORGANISM SNOMED Code(s): 262510655 Plan: 1. Continue symptomatic and supportive care 2. Liver serologies ordered 3. Abdominal ultrasound reviewed no acute findings 4. Agree with discontinuing Lipitor for now 5. Avoid hepatotoxic medications 6. No further workup indicated at this time. Recommend outpatient follow-up with gastroenterology in 1 to 2 weeks. Thank you for this consultation, patient is cleared from gastroenterology for discharge Dr. Gissell Madrid I agree with the dictator's note, documented as a scribe by Rossana Bruno.
[2024-09-02 11:30] LABS: Alpha Fetoprotein, Tumor Mkr <3.00 ng/mL (0.00-7.90)
[2024-09-02 14:37] VITALS: BP 126/76; PULSE 107; RESP 17; TEMP 98.4
--- NOTE | 2024-09-02 18:34 | P.DS ---
Providers Date of admission: 08/30/24 22:32 Expected date of discharge: 09/02/24 Attending physician: Erickson Garcia Consults: 09/01/24 19:44 Consult Physician Routine Consulting Provider: Rose Mary Madrid Consult Reason/Comments: Hepatitis Do you want consulting provider notified?: Yes Primary care physician: [facility] Course: Chief Complaint: Short of breath Pleasant 59-year-old, female patient, follows with Dr. Sung. Chronic stable medical condition include hypothyroid, osteoarthritis, hyperlipidemia, depression anxiety, urine incontinence. Patient presents with increased shortness of breath. Cough with yellow thick chunky sputum. Chills. Decreased appetite for 2 to 3 days. Wheezing. Patient smoking less than a pack a day. Fever and chills September 01: Breathing better. A bit tired. Did ambulate around the room. IV ceftriaxone. IV Solu-Medrol. Discussed with patient. Hopefully discharge tomorrow. Patient's TSH is rather low. She clinically does not look to be over replaced. Will decrease Synthroid to 75. LFTs are up. Abdominal ultrasound unremarkable. Check acute hepatitis panel. Hold Lipitor. September 02: Seen by Dr. Gissell Madrid's team. They will follow-up outpatient. Patient Lipitor is being discontinued. Patient was informed about at reduced dose of Synthroid. Patient continuing inhalers at home. Prednisone taper. Counseled about smoking. Patient did drop down to 83% with activity. Being sent home with home oxygen. Social work involved Discussion and discharge planning more than 35 minutes Social history: Lives with her boyfriend Enzo. Currently less than a pack a day with smoking for quite close to 48 years. No alcohol. Physical examination: VITAL SIGNS: 98.4, 107, 17, 126% 6, 83% with activity. GENERAL: Breathing improved r EYES: Pupils equal. Conjunctiva lars l. HEENT: [External appearance of nose and ears normal, oral cavity missing teeth NECK: JVD not raised; masses not palpable. HEART: First and second heart sounds are normal; no edema. LUNGS: Respiratory rate increased, diminished breath sounds ABDOMEN: Soft, nontender, liver spleen not palpable, no masses palpable. PSYCH: [Alert and oriented x3; mood and affect bit anxious. MUSCULOSKELETAL:No Clubbing/cyanosis;muscles-grossly intact. Loss of muscle mass subcutaneous fat. Prominent bones. INVESTIGATIONS, reviewed in the clinical context: Alpha 1 antitrypsin 277. 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 ST-T wave changes. Chest x-ray film personally reviewed by me-right basilar infiltrate. Assessment plan: - Right basal pneumonia suspect gram-negative organism causing sepsis: Better IV ceftriaxone 2 g. Sputum for Gram stain culture. Blood culture Discharged on Ceftin 500 mg twice daily: 6 doses - Acute COPD exacerbation in a current smoker: Improving DuoNeb. IV Solu-Medrol. Discharged on prednisone taper. Home inhalers. Including Advair and albuterol - Chronic hypoxic respiratory failure from underlying COPD Patient pulse ox was 83% on room air with activity - Chronic nicotine dependence cigarette smoker Nicotine patch 21 - Hepatitis.: With worsening Acute hepatitis panel.: Negative Liver ultrasound: Unremarkable Hold Lipitor Seen by Dr. Gissell Madrid. Follow-up outpatient. - Hypothyroid, with over replacement Synthroid 112 mcg a day -reduce dose to 75mcg. - Chronic depression Recheck TSH in 4 weekswith anxiety. Lexapro. Diazepam. - Osteoporosis, chronic Fosamax - Hyperlipidemia Lipitor - Edentulous Soft diet - Full code Disposition: Home Past Medical History Past Medical History: COPD, Hyperlipidemia, Thyroid Disorder Additional Past Medical History / Comment(s): fx lt ankle due to fall. History of Any Multi-Drug Resistant Organisms: None Reported Additional Past Surgical History / Comment(s): d & c. Past Anesthesia/Blood Transfusion Reactions: No Reported Reaction Additional Past Anesthesia/Blood Transfusion Reaction / Comment(s): no hx blood transfusion. Past Psychological History: Anxiety Smoking Status: Current every day smoker Past Alcohol Use History: Rare Additional Past Alcohol Use History / Comment(s): started smoking approx at age 16,1ppd. Past Drug Use History: None Reported Plan - Discharge Summary Discharge Rx Participant: Yes New Discharge Prescriptions: New predniSONE 10 mg PO DAILY #30 tab Levothyroxine Sodium [Synthroid] 75 mcg PO DAILY@0630 #30 tab cefuroxime axetiL [Ceftin] 500 mg PO BID #6 tab Nicotine 21Mg/24Hr Patch [Habitrol] 1 patch TRANSDERM DAILY #30 patch Continue Diazepam 10 mg PO BID Albuterol Inhaler [Ventolin Hfa Inhaler] 2 puff INHALATION RT-Q6H PRN PRN Reason: Shortness Of Breath Ibuprofen [Motrin] 800 mg PO TID Alendronate Sodium [Fosamax] 70 mg PO FR Gabapentin 600 mg PO DAILY Montelukast [Singulair] 10 mg PO DAILY Atorvastatin Calcium [Lipitor] 40 mg PO DAILY Escitalopram [Lexapro] 10 mg PO DAILY Fluticasone Propion/Salmeterol [Advair 250-50 Diskus] 1 puff INHALATION RT- BID Discontinued Levothyroxine Sodium [Synthroid] 112 mcg PO DAILY Discharge Medication List Albuterol Inhaler [Ventolin Hfa Inhaler] 2 puff INHALATION RT-Q6H PRN 12/17/15 [History] Diazepam 10 mg PO BID 12/17/15 [History] Ibuprofen [Motrin] 800 mg PO TID 12/17/15 [History] Alendronate Sodium [Fosamax] 70 mg PO FR 08/31/24 [History] Atorvastatin Calcium [Lipitor] 40 mg PO DAILY 08/31/24 [History] Escitalopram [Lexapro] 10 mg PO DAILY 08/31/24 [History] Fluticasone Propion/Salmeterol [Advair 250-50 Diskus] 1 puff INHALATION RT-BID 08/31/24 [History] Gabapentin 600 mg PO DAILY 08/31/24 [History] Montelukast [Singulair] 10 mg PO DAILY 08/31/24 [History] Levothyroxine Sodium [Synthroid] 75 mcg PO DAILY@0630 #30 tab 09/02/24 [Rx] Nicotine 21Mg/24Hr Patch [Habitrol] 1 patch TRANSDERM DAILY #30 patch 09/02/24 [Rx] cefuroxime axetiL [Ceftin] 500 mg PO BID #6 tab 09/02/24 [Rx] predniSONE 10 mg PO DAILY #30 tab 09/02/24 [Rx] Follow up Appointment(s)/Referral(s): [facility] [NON-STAFF] - 1 Week [facility] [REFERRING] - 1 Week (Gastroenterology follow-up for elevated LFTs) Cain Sung MD [Primary Care Provider] - 1-2 days Rose Mary Madrid MD [STAFF PHYSICIAN] - 1 Week Patient Instructions/Handouts: Using Oxygen at Home (DC), COPD (Chronic Obstructive Pulmonary Disease) (DC)
[2024-09-03] MEDS ORDERED: LEVOTHYROXINE 75 MCG TAB PO SCH (06:30)
[2024-09-04 17:00] LABS: ANA Pattern Speckled
== END 2024-09-02 20:27 | disposition home or self-care (01) | DRG 720 ==
LOC: EC 20:14 → 3SCARD 22:32 → 4SSUR 08-31 03:55
PROVIDERS: ADMIT Hospitalist; ATTEND Hospitalist
DX: A41.59 Other Gram-negative sepsis (principal); J96.21 Acute and chronic respiratory failure with hypoxia; J15.69 Pneumonia due to other Gram-negative bacteria; K75.9 Inflammatory liver disease, unspecified; F32.A Depression, unspecified; J44.1 Chronic obstructive pulmonary disease with (acute) exacerbation; E03.9 Hypothyroidism, unspecified; F17.210 Nicotine dependence, cigarettes, uncomplicated; E78.5 Hyperlipidemia, unspecified; F41.9 Anxiety disorder, unspecified; R32 Unspecified urinary incontinence; M81.8 Other osteoporosis without current pathological fracture; Z79.82 Long term (current) use of aspirin; Z79.890 Hormone replacement therapy; Z79.51 Long term (current) use of inhaled steroids; Z79.83 Long term (current) use of bisphosphonates; Z79.1 Long term (current) use of non-steroidal anti-inflammatories (NSAID); Z79.899 Other long term (current) drug therapy
CPT/HCPCS: 36415; 71046; 76705; 80053; 80074; 82103; 82105; 82390; 83516; 83605; 83735; 83880; 84145; 84439; 84443; 84484; 85025; 85610; 85730; 86038; 86039; 87040; 87070; 87205; 87636; 93005; 94640; 94760; 96361; 96365; 96366; 96375; 99291